=== PATIENT | male | born 1980 | race Caucasian/White ===

== ENCOUNTER 2018-06-26 07:52 | Emergency (ER) | payer BC ==
[2018-06-26 08:11] VITALS: BP 115/61
[2018-06-26] MEDS ORDERED: Fluorescein Sodium TOPICAL* 1 MG TEST STRIP OPHTHALMIC ONE (08:26)
--- NOTE | 2018-06-26 08:54 | UC ---
Eye Complaint HPI - HPI Summary HPI Summary: Patient presents to urgent care for evaluation of his right eye. Patient states yesterday he scratched along his right eye bilateral arcus. Patient states he initially felt like there was something in it but now he does have some discomfort. Eye is tearing clears. Patient states she's got a little bit of photophobia. No vision changes. No nausea vomiting. No fever, chills, rash. Patient does not wear corrective lenses. No analgesia taken. No eye surgery. Patient's tetanus is less than 10 years. Patient's medications reviewed this visit - History of Current Complaint Chief Complaint: UCEye Stated Complaint: RIGHT EYE CONCERN Hx Obtained From: Patient Severity Initially: Moderate Severity Currently: Moderate Pain Intensity: 7 Pain Scale Used: 0-10 Numeric Location of Injury: Conjunctiva Associated Signs And Symptoms: Positive: Photophobia, Drainage (Clear) - Allergies/Home Medications Allergies/Adverse Reactions: Allergies Allergy/AdvReac Type Severity Reaction Status Date / Time No Known Allergies Allergy Verified 06/26/18 08:06 Home Medications: Home Medications Ibuprofen TAB* [Advil TAB*] 400 mg PO Q6H PRN 06/26/18 [History Confirmed ] PMH/Surg Hx/FS Hx/Imm Hx Previously Healthy: Yes - Surgical History Surgical History: None - Family History Known Family History: Positive: Non-Contributory - Social History Alcohol Use: Occasionally Substance Use Type: None Smoking Status (MU): Current Some Day Smoker Type: Cigarettes Amount Used/How Often: occasional with drinking Length of Time of Smoking/Using Tobacco: 15 yrs - Immunization History Most Recent Tetanus Shot: unknown Review of Systems All Other Systems Reviewed And Are Negative: Yes Eyes: Positive: Drainage, Eye Redness, Photophobia Physical Exam - Summary Physical Exam Summary: Vital Signs Reviewed: Yes A+Ox3, no distress Eyes: Conjunctiva Clear, VIJI. EOM intact and full right eye tearing, crisp fundoscopic margin with verbal permission - instilled fluorescene dye right eye pt with small area of update 9 oclock over iris - no f.b. noted - lids everted ENT: Hearing grossly normal TM x 2 clear, mmoist, uvula midline, no exudate, no erythema Neck: Positive: Supple Respiratory: Positive: No respiratory distress, No accessory muscle use + CTA throughout no w/r Cardiovascular: RRR nl s1, s2 no m/r CBT <2 sec abd soft + BS nt/nd no guarding, no distension Musculoskeletal Exam: CASTREJON x 4 without difficulty Strength Intact, ROM Intact Neurological: Positive: Alert, + sensation throughout Psychological: Positive: Normal Response To Family Skin: Positive: no rash, no ecchymosis Triage Information Reviewed: Yes Vital Signs: Initial Vital Signs Temp 98.3 F 06/26/18 08:07 Pulse 65 06/26/18 08:07 Resp 16 06/26/18 08:07 BP 115/61 06/26/18 08:07 Pulse Ox 98 06/26/18 08:07 Eye Complaint Course/Dx - Course Course Of Treatment: Pt with discomfort right eye, reddness, tearing s/p poke with lilac clifton VSS pt with corneal abraison - small on exam - no retained fb noted reviewed with pt abx ketorolac motrin/apap patch prn return precautions ophtho prn - Differential Dx/Diagnosis Provider Diagnosis: Right corneal abrasion Discharge - Sign-Out/Discharge Documenting (check all that apply): Patient Departure All imaging exams completed and their final reports reviewed: No Studies - Discharge Plan Condition: Stable Disposition: HOME Prescriptions: Ketorolac 0.5% OPHTH (NF) 1 drop RIGHT EYE QID PRN #1 btl PRN Reason: eye pain Polymyx/Trimethoprim OPTH* [Polytrim OPHTH*] 2 drop RIGHT EYE TID #1 btl Patient Education Materials: Corneal Abrasion (ED) Referrals: Elizabeth Ortiz MD [Primary Care Provider] - Dylan Hager MD [Medical Doctor] - As Soon As Possible Additional Instructions: - apply eye ointment to affected every 3 times a day for the next 5 days -okay to alternate ibuprofen (Advil, Motrin) 600mg and tylenol every 3 hours for pain. Take with food -Okay to use eye drops (ketorolac) for eye pain as prescribed - wearing sunglasses will help with discomfort -Okay to purchase and use an eye patch for comfort -contact the healthcare science specialist to schedule a follow-up or if you have any questions or concerns - Billing Disposition and Condition Condition: STABLE Disposition: Home
== END 2018-06-26 09:12 | disposition home or self-care (01) ==
LOC: UCCORT 07:52
DX: S05.01XA Injury of conjunctiva and corneal abrasion without foreign body, right eye, initial encounter (principal); F17.210 Nicotine dependence, cigarettes, uncomplicated; X58.XXXA Exposure to other specified factors, initial encounter; Y92.9 Unspecified place or not applicable
CPT/HCPCS: 99212; A9270-GY; G0463

== ENCOUNTER 2018-11-13 10:31 | Emergency (ER) | payer BC ==
--- NOTE | 2018-11-13 11:02 | UC ---
Throat Pain/Nasal Les HPI - HPI Summary HPI Summary: 38-year-old male with a sore throat over the past 3 days. Denies any fever or chills. - History of Current Complaint Stated Complaint: ST Time Seen by Provider: 11/13/18 11:01 Hx Obtained From: Patient Onset/Duration: Gradual Onset Severity: Mild Cough: None Associated Signs & Symptoms: Positive: Negative - Allergies/Home Medications Allergies/Adverse Reactions: Allergies Allergy/AdvReac Type Severity Reaction Status Date / Time No Known Allergies Allergy Verified 11/13/18 11:06 Home Medications: Home Medications Dm/Pseudoephed/Acetaminophen [Day-Time Multi-Symptom Co] 2 cap PO BID PRN [History Confirmed 11/13/18] PMH/Surg Hx/FS Hx/Imm Hx Previously Healthy: Yes - Surgical History Surgical History: None - Family History Known Family History: Positive: None, Non-Contributory - Social History Occupation: Employed Full-time Alcohol Use: Occasionally Substance Use Type: None Smoking Status (MU): Current Some Day Smoker Type: Cigarettes Amount Used/How Often: occasional with drinking Length of Time of Smoking/Using Tobacco: 15 yrs - Immunization History Most Recent Tetanus Shot: unknown Review of Systems All Other Systems Reviewed And Are Negative: Yes ENT: Positive: Sore Throat Is Patient Immunocompromised?: No Physical Exam Triage Information Reviewed: Yes Appearance: Well-Appearing, No Pain Distress, Well-Nourished Vital Signs Reviewed: Yes Eyes: Positive: Conjunctiva Clear ENT: Positive: Hearing grossly normal, Pharynx normal, TMs normal, Uvula midline Neck: Positive: Supple, Nontender, No Lymphadenopathy Respiratory: Positive: Lungs clear, Normal breath sounds, No respiratory distress, No accessory muscle use Cardiovascular: Positive: RRR, No Murmur, Pulses Normal, Brisk Capillary Refill Musculoskeletal Exam: Normal Neurological Exam: Normal Psychological Exam: Normal Skin Exam: Normal Throat Pain/Nasal Course/Dx - Course Course Of Treatment: Rapid strep test negative - Differential Dx/Diagnosis Provider Diagnosis: Pharyngitis Discharge ED - Sign-Out/Discharge Documenting (check all that apply): Patient Departure All imaging exams completed and their final reports reviewed: No Studies - Discharge Plan Condition: Good Disposition: HOME Patient Education Materials: Pharyngitis (ED) Referrals: Elizabeth Ortiz MD [Primary Care Provider] - Additional Instructions: Warm saltwater gargles, throat lozenges, Tylenol as needed for pain or may alternate with ibuprofen as directed. Follow-up with your primary care provider in 3 or 4 days if no improvement. - Billing Disposition and Condition Condition: GOOD Disposition: Home
[2018-11-13 11:09] VITALS: BP 111/60
== END 2018-11-13 11:32 | disposition home or self-care (01) ==
LOC: UCCORT 10:31
DX: J02.9 Acute pharyngitis, unspecified (principal); Z72.0 Tobacco use
CPT/HCPCS: 87651; 99211; G0463